=== PATIENT | female | born 1995 ===

== ENCOUNTER → 2017-02-23 | Outpatient (CLI) | payer OTHER | END | disposition home or self-care (01) | LOC: PLD 16:41 | DX: D23.71 Other benign neoplasm of skin of right lower limb, including hip (principal) | CPT/HCPCS: 88305 ==

== ENCOUNTER → 2019-03-22 | Outpatient (CLI) | payer BC | END | disposition home or self-care (01) | LOC: LAB 12:45 → LAB SHORT 12:45 | PROVIDERS: Nurse Practitioner Family | DX: Z01.419 Encounter for gynecological examination (general) (routine) without abnormal findings (principal) | CPT/HCPCS: G0145 ==